=== PATIENT | female | born 1980 | race Caucasian/White ===

== ENCOUNTER → 2024-08-12 09:47 | Outpatient (REF) | payer OTHER, SELFPAY ==
[2024-08-12 10:54] LABS: % Basophils 2.7 % (0-2); % Eosinophils 15.3 % (0-6); % Immature Granulocytes 0.2 % (0-0.5); % Monocytes 8.2 % (1.7-9.3); % Neutrophils 39.6 % (42.2-75.2); Absolute Basophils 0.1 10^3/uL (0-0.2); Absolute Eosinophils 0.8 10^3/uL (0-0.7); Absolute Lymphocytes 1.8 10^3/uL (1.2-3.4); Absolute Monocytes 0.4 10^3/uL (0.1-0.6); Absolute Neutrophils 2.1 10^3/uL (1.4-6.5); Hematocrit 39.3 % (37.0-47.0); Hemoglobin 13.3 g/dL (12.0-16.0); Mean Corp Hgb Conc. 33.8 g/dL (33.0-37.0); Mean Corpuscular Volume 85.6 fL (81.0-99.0); Mean Platelet Volume 9.9 fL (7.4-10.4); Nucleated Red Blood Cells % 0 %; Platelet Count 300 10^3/uL (130-400); Red Blood Cell Count 4.59 10^6/uL (4.20-5.40); Red Cell Dist. Width 12.1 % (11.5-14.5); White Blood Cell Count 5.2 10^3/uL (4.8-10.8)
[2024-08-12 12:27] LABS: ALT (SGPT) 12 U/L (0-35); AST (SGOT) 21 U/L (14-36); Albumin 4.7 g/dl (3.5-5.0); Alkaline Phosphatase 57 U/L (38-126); Blood Urea Nitrogen 11 mg/dl (7-17); Calcium 9.5 mg/dl (8.4-10.2); Carbon Dioxide 27 mmol/L (22-30); Chloride 103 mmol/L (98-107); Glucose 76 mg/dl (70-99); HDL Cholesterol 53 mg/dl; LDL Cholesterol, Calculated 111 mg/dl; Potassium 4.4 mmol/L (3.5-5.1); Sodium 140 mmol/L (135-145); Total Bilirubin 0.6 mg/dl (0.2-1.3); Total Cholesterol 180 mg/dl (50-199); Total Protein 7.1 g/dl (6.3-8.2); Triglyceride 80 mg/dl (10-149); Very Low Density Lipoprotein 16 mg/dl (0-30); eGFR > 60.00
== END ==
LOC: RAD 09:47
PROVIDERS: ATTENDING PHYSICIAN Family Medicine
DX: M54.2 Cervicalgia (principal)
CPT/HCPCS: 36415; 72040; 80053; 80061; 85025

== ENCOUNTER 2025-02-16 06:36 | Emergency (ER) | payer OTHER, SELFPAY ==
[2025-02-16 06:39] VITALS: BP 139/86
--- NOTE | 2025-02-16 08:20 | ED.GENMED ---
History of Present Illness
General
Chief Complaint: Dental Problem
Time Seen by Provider: 02/16/25 07:50
History of Present Illness
History of Present Illness:
44-year-old female without significant past medical history presenting to the emergency department for dental pain and swelling. Patient reports she has been having several days of right-sided lower dental pain. Reports that she called her primary
who prescribed her Augmentin. She took 3 doses, however when she woke up this morning had significant facial swelling. Reports that she has had this issue in the past and was supposed to get her tooth pulled, however was not able to get it pulled
as of yet. Denies fever. She has been taking Tylenol and Motrin for pain with overall improvement of symptoms. Denies chest pain, difficulty breathing, or acute additional medical complaints. Notes that the last time she saw her dentist was
about 6 months ago
Past History
Past History
ED Past Medical History: Other (several UTIs)
ED Past Surgical History: and Other (Umbilical herniorrhaphy)
Social History
Tobacco: Non-smoker
Alcohol: Occasional
Drug: None
Personal:
Living: with family
Phy Exam
Physical Exam
Physical Exam:
General: Well-appearing, no clinical signs of dehydration, nontoxic and in no acute distress
HEENT: protecting airway, swelling to the right lower mouth with broken tooth #30. No fluctuance on palpation to the gumline. No swelling to the oropharynx, normal phonation, protecting airway
Neck: appears supple
CV: Normal heart rate
Resp: No accessory muscle use, no increased work of breathing
Abd: No distention
Extremities: No deformities, no swelling
Neuro: alert, no focal neurologic deficit
: deferred
Rectal: deferred
Psych: Normal affect
Skin: Intact
Course
Orders/Labs/Results
Orders:
Orders
02/16/25 08:15
Clindamycin HCl [Cleocin] 450 mg PO NOW STA
Ketorolac [Toradol] 15 mg IM NOW STA
Vital Signs
Initial and Last Documented VS:
Initial Vital Signs
Temp Pulse Resp BP Pulse Ox
98.6 F 90 20 139/86 100
02/16/25 06:39 02/16/25 06:39 02/16/25 06:39 02/16/25 06:39 02/16/25 06:39
Last Documented Vital Signs
Temp Pulse Resp BP Pulse Ox
98.6 F 90 20 139/86 100
02/16/25 06:39 02/16/25 06:39 02/16/25 06:39 02/16/25 06:39 02/16/25 06:39
MDM/Problems Addressed
MDM/Problems Addressed:
44-year-old female presenting for right sided dental pain and swelling to the mouth. Vital signs are normal.
On exam, patient is resting comfortably, no acute distress. Patient presently protecting her airway, nontoxic. Obvious swelling to the right lower face. Suspected from broken tooth on the right lower mouth. No fluctuance to palpation of the
gumline without obvious external abscess. Suspicion for apical abscess. Given patient's facial swelling, will switch her to clindamycin with Toradol administered for pain. At this time feel stable for discharge with continued outpatient
supportive therapy with ultimate management being with oral surgery for tooth extraction. Advised that patient call her oral surgeon tomorrow for appointment. Turn precautions discussed and patient verbalized understanding.
*Pulse Oximetry
SaO2: 100
Oxygen Mode of Delivery: Room air
Patient hypoxic: no
*Critical Care Note
Total Time (30-74mins, 75-104mins- exclusive of procedures): Not Applicable
ED Attending Note
-
Portions of this chart may have been created with voice recognition software.� Occasional wrong word or��sound alike� substitutions may have occurred due to the inherent limitations of voice recognition software.
Discharge Plan
Departure
Patient Disposition: Home (Routine Discharge)
Date of Disposition: 02/16/25
Time of Disposition: 08:24
Patient with high blood pressure during this ER visit?: No
Condition: Good
Discharge Problem:
Dental abscess
Instructions: Tooth Abscess (DC), Dental Pain (DC)
Prescriptions:
New
clindamycin HCl [Cleocin HCl] 150 mg capsule
450 mg PO TID 7 Days Qty: 63 0RF
ibuprofen 800 mg tablet
800 mg PO Q8H PRN (Reason: Pain) Qty: 20 0RF
No Action
levofloxacin 750 mg tablet
750 mg PO DAILY 7 Days Qty: 7 0RF
nitrofurantoin macrocrystal 100 mg capsule
100 mg PO BID 7 Days Qty: 14 0RF
Referrals:
Viktor Lopez DO [Family Provider, Family Practice]
Activity Restrictions/Additional Instructions:
You were seen in the emergency department for tooth pain
You are suspected to have a dental abscess. You were started on clindamycin. Please take as directed. Please follow-up closely with your dentist and your oral surgeon for tooth extraction
Please follow-up closely with your primary care physician.
Return to the emergency department for any worsening of your symptoms, or any development of chest pain, difficulty breathing, abdominal pain with persistent vomiting and inability to tolerate food or liquid by mouth (concern for dehydration),
weakness, headache or confusion, fever greater than 100.4, or any additional symptoms that are concerning to you.
Thank you for choosing [facility].
Interventions
Interventions:
*Risk Screen - Suicide Last Done: 02/16/25 06:39
*General Assessment Last Done: 02/16/25 06:39
*Neglect/Abuse Screening Last Done: 02/16/25 06:39
Discharge Date and Time
Print Language: [id number]
[2025-02-16] MEDS: TORADOL 15 MG IM (08:28)
[2025-02-16] MEDS: CLEOCIN 450 MG PO (08:28)
== END 2025-02-16 08:41 | disposition home or self-care (01) ==
LOC: EMR 06:36
PROVIDERS: EMERGENCY PHYSICIAN Student in an Organized Health Care Education/Training Program; FAMILY PHYSICIAN Family Medicine
DX: K04.7 Periapical abscess without sinus (principal)
CPT/HCPCS: 96372; 99284